=== PATIENT | female | born 1985 | race American Indian/Alaskan Native ===

== ENCOUNTER 2017-05-05 19:54 | Outpatient (CLI) | payer OTHER ==
[2017-05-05] MEDS ORDERED: LACTATED RINGERS 1,000 ML IV ONE (20:00)
[2017-05-05 20:46] VITALS: BP 111/56
[2017-05-05] MEDS ORDERED: TYLENOL PO ONE (21:01)
[2017-05-05 22:12] LABS: INR 1.03 (0.87-1.13); Partial Thromboplastin Time 26.9 Sec. (24.2-36.6)
[2017-05-05 22:18] LABS: Hematocrit 36.5 % (30.3-42.9); Mean Corpuscular HGB Conc 33 % (30-34); Mean Corpuscular Hemoglobin 30 pg (28-32); Mean Corpuscular Volume 89 fl (79-97); Platelet Count 181 K/mm3 (140-440); Red Blood Count 4.09 M/mm3 (3.65-5.03); Red Cell Distribution Width 14.5 % (13.2-15.2); White Blood Count 5.3 K/mm3 (4.5-11.0)
[2017-05-05] MEDS ORDERED: LACTATED RINGERS 1,000 ML ONE (23:01)
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
== END 2017-05-06 00:33 | disposition home or self-care (01) ==
LOC: TRG 19:54 → LD 20:37 → TRG 05-06 00:33
PROVIDERS: ATTEND Obstetrics & Gynecology
DX: O26.892 Other specified pregnancy related conditions, second trimester (principal); V89.2XXA Person injured in unspecified motor-vehicle accident, traffic, initial encounter; Z3A.26 26 weeks gestation of pregnancy; Y93.89 Activity, other specified; Y92.89 Other specified places as the place of occurrence of the external cause; Y99.8 Other external cause status
CPT/HCPCS: 36415; 76816; 85027; 85460; 85610; 85730; 86850; 86900; 86901; J7120; 59025; 96360